=== PATIENT | male | born 1965 | race Caucasian/White ===

== ENCOUNTER 2019-06-16 10:34 | Outpatient (CLI) | payer OTHER ==
--- NOTE | 2019-06-16 11:15 | RAD ---
CHEST 2 VIEWS: Date: 06/16/19 HISTORY: Positive PPD. FINDINGS: Heart size is normal. The lungs appear clear. Mild biapical pleural thickening. IMPRESSION: No acute intrathoracic disease. No evidence for active TB. POS: C
== END 2019-06-16 10:35 | disposition home or self-care (01) ==
LOC: BICRAD 10:34
PROVIDERS: ATTEND Internal Medicine
DX: R76.11 Nonspecific reaction to tuberculin skin test without active tuberculosis (principal)
CPT/HCPCS: 71046

== ENCOUNTER 2021-09-24 16:47 | Inpatient (IN) | payer SELFPAY ==
[2021-09-24] MEDS ORDERED: Aspirin Chewable 81 MG TAB ONE (18:16)
[2021-09-24] MEDS ORDERED: Labetalol HCl 100 MG/20 ML VIAL ONE (18:16)
[2021-09-24] MEDS ORDERED: Ondansetron PF 4 MG/2 ML Vial IVP PRN (20:15)
[2021-09-24] MEDS ORDERED: Acetaminophen 650 MG Suppository PR PRN (20:15)
[2021-09-24] MEDS ORDERED: HumaLOG 300 UNITS/3 ML VIAL SC PRN (20:15)
[2021-09-24] MEDS ORDERED: Dextrose 5% in Water 1,000 ML IV PRN (20:15)
[2021-09-24] MEDS ORDERED: Senokot S 8.6-50 MG TAB PO PRN (20:15)
[2021-09-24] MEDS ORDERED: Dextrose 50% Abboject 50 ML SYRINGE SLOW IVP PRN (20:15)
[2021-09-24] MEDS ORDERED: Ondansetron ODT 4 MG TAB PO PRN (20:15)
[2021-09-24] MEDS ORDERED: Acetaminophen 325 MG TAB PO PRN (20:15)
[2021-09-24 23:01] VITALS: BMI 25.9
[2021-09-24] MEDS: Sodium Chloride 0.9% 1,000 ML IV SCH (23:18)
[2021-09-24] MEDS: Atorvastatin Calcium 40 MG TAB PO SCH (23:19)
[2021-09-24] MEDS: Nitroglycerin 2% Ointment 1 INCH/1 GM Packet TOP SCH (23:19)
[2021-09-25] MEDS: hydrALAZINE 20 MG/ML VIAL SLOW IVP PRN ×2 (03:29→08:26)
[2021-09-25] MEDS: Nicotine 14 MG PATCH TD SCH ×2 (04:39→20:50)
[2021-09-25 06:09] LABS: #Lymphocytes 1.1 thou/uL (1.20-3.40); #Monocytes 0.5 thou/uL (0.11-0.59); #Neutrophils 8.3 thou/uL (1.40-6.50); %Basophils 0.5 % (0.0-1.0); %Eosinophils 0.5 % (0.0-10.0); Hemoglobin 14.5 g/dL (14.0-18.0); Mean Corpuscular HGB CONC 32.6 g/dL (32.0-36.0); Mean Corpuscular Hemoglobin 25.9 pg (27.0-31.0); Mean Corpuscular Volume 79.4 fL (78.0-98.0); Mean Platelet Volume 8.3 fL (7.4-10.4); Platelet Count 205 thou/uL (130-400); RBC Distribution Width 13.9 % (11.5-14.5)
[2021-09-25 06:14] LABS: Hemoglobin A1c 6.8 % (4.0-6.0)
[2021-09-25 06:32] LABS: Anion Gap 12 mmol/L (10-20); BUN (Urea Nitrogen) 14 mg/dL (8.4-25.7); Calc. Creatinine Clearance 94 mL/min (70-130); Calcium 8.8 mg/dL (7.8-10.44); Carbon Dioxide 27 mmol/L (22-29); Cardiac Risk 3.7 (Less than 4.5); Chloride 101 mmol/L (98-107); Cholesterol 204 mg/dl (< 200 Desired); Glucose 157 mg/dL (70-105); HDL Cholesterol 55 mg/dL (>60 Neg Risk); LDL Cholesterol, Calculated 135 mg/dL; Potassium 3.6 mmol/L (3.5-5.1); Sodium 136 mmol/L (136-145); Triglycerides 70 mg/dL (Less than 150)
[2021-09-25] MEDS: Aspirin 81 mg Enteric Coated Tablet PO SCH (08:26)
[2021-09-25] MEDS: Nitroglycerin 2% Ointment 1 INCH/1 GM Packet TOP SCH ×2 (08:26→20:49)
[2021-09-25] MEDS ORDERED: Clopidogrel Bisulfate 75 MG TAB PO SCH (09:45)
[2021-09-25 11:58] LABS: SARS-CoV-2 PCR by NAA Not Detected (NotDetected)
[2021-09-25] MEDS: HumaLOG 300 UNITS/3 ML VIAL SC PRN ×2 (12:32→18:04)
[2021-09-25 13:13] LABS: Bacteria/HPF None Seen HPF (None Seen); Bilirubin Negative (Negative); Blood, Urine Negative (Negative); Clarity Clear (Clear); Glucose, Urine (Dipstick) 300 mg/dL (Negative); Ketone, Urine Trace mg/dL (Negative); Leukocyte Negative Leu/uL (Negative); Nitrite Negative (Negative); Protein, Urine (Dipstick) 50 mg/dL (Neg-Trace); RBC/HPF 0-3 HPF (0-3); Specific Gravity, Urine 1.019 (1.002-1.036); Squamous Epithelial None Seen HPF (0-3); Urobilinogen Normal mg/dL (Less than 2); WBC/HPF 0-3 HPF (0-3); pH, Urine 7.5 (5.0-9.0)
[2021-09-25] MEDS: Labetalol HCl 100 MG/20 ML VIAL SLOW IVP PRN (15:47)
[2021-09-25] MEDS: Sodium Chloride 0.9% 1,000 ML IV SCH (15:48)
[2021-09-25] MEDS: Atorvastatin Calcium 40 MG TAB PO SCH (20:50)
[2021-09-26] MEDS: Labetalol HCl 100 MG/20 ML VIAL SLOW IVP PRN (08:16)
[2021-09-26] MEDS: Aspirin 81 mg Enteric Coated Tablet PO SCH (08:16)
[2021-09-26] MEDS: Nitroglycerin 2% Ointment 1 INCH/1 GM Packet TOP SCH (08:17)
[2021-09-26] MEDS ORDERED: Clopidogrel Bisulfate 75 MG TAB PO SCH (09:00)
[2021-09-26] MEDS ORDERED: NIFEdipine XL 90 MG TAB PO SCH (10:00)
[2021-09-26] MEDS ORDERED: Losartan 25 MG TAB PO SCH (10:00)
[2021-09-26] MEDS: HumaLOG 300 UNITS/3 ML VIAL SC PRN (11:00)
[2021-09-26 12:28] VITALS: TEMP 98
[2021-09-26 13:25] VITALS: BP 158/102
== END 2021-09-26 14:04 | disposition home or self-care (01) | DRG 65 ==
LOC: ERS 16:47 → ERHOLD 19:02 → 3SE 22:40
PROVIDERS: ADMIT Student in an Organized Health Care Education/Training Program; ATTEND Internal Medicine
DX: I63.81 Other cerebral infarction due to occlusion or stenosis of small artery (principal); G81.94 Hemiplegia, unspecified affecting left nondominant side; I16.1 Hypertensive emergency; N17.9 Acute kidney failure, unspecified; Z20.822 Contact with and (suspected) exposure to COVID-19; R29.701 NIHSS score 1; L40.9 Psoriasis, unspecified; E11.9 Type 2 diabetes mellitus without complications; I10 Essential (primary) hypertension; K21.9 Gastro-esophageal reflux disease without esophagitis; R79.89 Other specified abnormal findings of blood chemistry; F17.210 Nicotine dependence, cigarettes, uncomplicated; Z91.19 Patient's noncompliance with other medical treatment and regimen; Z79.899 Other long term (current) drug therapy; Z83.3 Family history of diabetes mellitus; Z82.49 Family history of ischemic heart disease and other diseases of the circulatory system; Z71.6 Tobacco abuse counseling; Z79.84 Long term (current) use of oral hypoglycemic drugs
CPT/HCPCS: 36415; 36416; 70551; 80048; 80061; 81001; 83036; 85025; 93306; 96374; J0360; J1815; J7050; U0003; U0005

== ENCOUNTER 2021-10-30 11:52 | Emergency (ER) | payer SELFPAY ==
[2021-10-30 14:04] LABS: #Basophils 0.1 thou/uL (0.0-0.2); #Eosinphils 0.4 thou/uL (0.0-0.7); #Lymphocytes 1.5 thou/uL (1.20-3.40); #Monocytes 0.7 thou/uL (0.11-0.59); #Neutrophils 7.1 thou/uL (1.40-6.50); %Basophils 0.7 % (0.0-1.0); %Eosinophils 3.6 % (0.0-10.0); %Lymphocytes 15.6 % (21.0-51.0); %Monocytes 7.5 % (0.0-10.0); %Neutrophils 72.6 % (42.0-75.0); Hemoglobin 12.3 g/dL (14.0-18.0); Mean Corpuscular HGB CONC 33.2 g/dL (32.0-36.0); Mean Corpuscular Hemoglobin 27.3 pg (27.0-31.0); Mean Corpuscular Volume 82.2 fL (78.0-98.0); Platelet Count 277 thou/uL (130-400); RBC Distribution Width 15.2 % (11.5-14.5); White Blood Cell (WBC) Count 9.8 thou/uL (4.8-10.8)
[2021-10-30 14:25] LABS: ALT (SGPT) 11 U/L (8-55); AST (SGOT) 22 U/L (5-34); Albumin 3.5 g/dL (3.5-5.0); Alkaline Phosphatase 76 U/L (40-110); Anion Gap 15 mmol/L (10-20); BUN (Urea Nitrogen) 17 mg/dL (8.4-25.7); Bilirubin, Total 1.1 mg/dL (0.2-1.2); Calc. Creatinine Clearance 0 mL/min (70-130); Carbon Dioxide 25 mmol/L (22-29); Chloride 105 mmol/L (98-107); Globulin 2.8 g/dL (2.4-3.5); Glucose 110 mg/dL (70-105); Potassium 4.4 mmol/L (3.5-5.1); Protein, Total 6.3 g/dL (6.0-8.3); Sodium 141 mmol/L (136-145)
[2021-10-30] MEDS ORDERED: Furosemide 40 MG/4 ML VIAL ONE (15:04)
== END 2021-10-30 17:44 | disposition home or self-care (01) ==
LOC: ERS 11:52
DX: R60.0 Localized edema (principal); I10 Essential (primary) hypertension; E11.9 Type 2 diabetes mellitus without complications; K21.9 Gastro-esophageal reflux disease without esophagitis; F17.220 Nicotine dependence, chewing tobacco, uncomplicated; Z79.82 Long term (current) use of aspirin; Z79.899 Other long term (current) drug therapy
CPT/HCPCS: 80053; 83880; 84484; 85025; 93005; 96374; J1940

== ENCOUNTER 2023-05-10 16:00 | Inpatient (IN) | payer BC ==
[~2023-05-10 16:00] MED LIST: Iopamidol-370 76% 500 ML MDV (1 ML CHARGE) ONE
[2023-05-10 16:28] LABS: #Basophils 0.1 thou/uL (0.0-0.2); #Eosinphils 0.3 thou/uL (0.0-0.7); #Monocytes 0.5 thou/uL (0.11-0.59); %Basophils 0.8 % (0.0-1.0); %Eosinophils 4.5 % (0.0-10.0); %Lymphocytes 31.7 % (21.0-51.0); %Monocytes 7.5 % (0.0-10.0); %Neutrophils 55.2 % (42.0-75.0); Hemoglobin 15.8 g/dL (14.0-18.0); Mean Corpuscular HGB CONC 32.3 g/dL (32.0-36.0); Mean Corpuscular Hemoglobin 25.3 pg (27.0-31.0); Mean Corpuscular Volume 78.4 fl (78.0-98.0); Platelet Count 220 10x3/uL (130-400); RBC Distribution Width 14.6 % (11.5-14.5); Red Blood Cell (RBC) Count 6.24 mill/uL (4.70-6.10); White Blood Cell (WBC) Count 7.2 10x3/uL (4.8-10.8)
[2023-05-10 16:37] LABS: PTT 31.3 sec (22.9-36.1); Prothrombin Time 13.4 sec (12.0-14.7)
[2023-05-10 16:48] LABS: ALT (SGPT) Less than 7 U/L (8-55); AST (SGOT) 18 U/L (5-34); Albumin 4.2 g/dL (3.5-5.0); Alkaline Phosphatase 75 U/L (40-110); Anion Gap 15 mmol/L (10-20); BUN (Urea Nitrogen) 17 mg/dL (8.4-25.7); Bilirubin, Total 0.6 mg/dL (0.2-1.2); CK (CPK) 144 U/L (30-200); Calc. Creatinine Clearance 0 mL/min (70-130); Carbon Dioxide 23 mmol/L (22-29); Chloride 105 mmol/L (98-107); Estimated GFR 69; Globulin 2.7 g/dL (2.4-3.5); Glucose 163 mg/dL (70-105); Potassium 4.3 mmol/L (3.5-5.1); Protein, Total 6.9 g/dL (6.0-8.3); Sodium 139 mmol/L (136-145)
[2023-05-10] MEDS ORDERED: Aspirin Chewable 81 MG TAB ONE (18:27)
[2023-05-10] MEDS ORDERED: Ondansetron PF 4 MG/2 ML Vial IVP PRN (19:58)
[2023-05-10] MEDS ORDERED: Acetaminophen 325 MG TAB PO PRN (19:58)
[2023-05-10] MEDS ORDERED: hydrALAZINE 20 MG/ML VIAL SLOW IVP PRN (19:58)
[2023-05-10] MEDS ORDERED: Dextrose 50% Abboject 50 ML SYRINGE SLOW IVP PRN (20:05)
[2023-05-10] MEDS ORDERED: Dextrose 5% in Water 1,000 ML IV PRN (20:05)
[2023-05-10] MEDS ORDERED: Glucagon 1 MG/ML KIT IM PRN (20:05)
[2023-05-10] MEDS ORDERED: HumaLOG 300 UNITS/3 ML VIAL SC PRN (20:05)
[2023-05-10 22:17] VITALS: BMI 27.1
[2023-05-10] MEDS: Atorvastatin Calcium 40 MG TAB PO SCH (22:50)
[2023-05-11 05:04] LABS: #Eosinphils 0.4 thou/uL (0.0-0.7); #Monocytes 0.5 thou/uL (0.11-0.59); #Neutrophils 3.1 thou/uL (1.40-6.50); %Basophils 0.6 % (0.0-1.0); %Eosinophils 6.2 % (0.0-10.0); %Lymphocytes 38.2 % (21.0-51.0); %Monocytes 7.9 % (0.0-10.0); %Neutrophils 46.8 % (42.0-75.0); Hemoglobin 15.1 g/dL (14.0-18.0); Mean Corpuscular HGB CONC 32.4 g/dL (32.0-36.0); Mean Corpuscular Hemoglobin 25.1 pg (27.0-31.0); Mean Corpuscular Volume 77.5 fl (78.0-98.0); Platelet Count 204 10x3/uL (130-400); RBC Distribution Width 14.6 % (11.5-14.5); Red Blood Cell (RBC) Count 6.01 mill/uL (4.70-6.10); White Blood Cell (WBC) Count 6.6 10x3/uL (4.8-10.8)
[2023-05-11 05:21] LABS: Hemoglobin A1c 8.7 % (4.0-6.0)
[2023-05-11 05:35] LABS: Anion Gap 12 mmol/L (10-20); BUN (Urea Nitrogen) 19 mg/dL (8.4-25.7); Calc. Creatinine Clearance 81 mL/min (70-130); Calcium 8.9 mg/dL (7.8-10.44); Carbon Dioxide 23 mmol/L (22-29); Cardiac Risk 5.5 (Less than 4.5); Chloride 108 mmol/L (98-107); Cholesterol 221 mg/dl (< 200 Desired); Estimated GFR 76; Glucose 138 mg/dL (70-105); HDL Cholesterol 40 mg/dL (>60 Neg Risk); LDL Cholesterol, Calculated 143 mg/dL; Potassium 3.8 mmol/L (3.5-5.1); Sodium 139 mmol/L (136-145); Triglycerides 191 mg/dL (Less than 150)
[2023-05-11] MEDS: Aspirin 81 mg Enteric Coated Tablet PO SCH (08:58)
[2023-05-11] MEDS: Atorvastatin Calcium 40 MG TAB PO SCH (20:39)
[2023-05-12] MEDS ORDERED: diphenhydrAMINE 25 MG CAP PO SCH (04:15)
[2023-05-12 05:28] LABS: #Eosinphils 0.3 thou/uL (0.0-0.7); #Monocytes 0.4 thou/uL (0.11-0.59); #Neutrophils 3.5 thou/uL (1.40-6.50); %Basophils 0.5 % (0.0-1.0); %Eosinophils 5.8 % (0.0-10.0); %Lymphocytes 26.4 % (21.0-51.0); %Monocytes 6.3 % (0.0-10.0); %Neutrophils 60.7 % (42.0-75.0); Hemoglobin 14.6 g/dL (14.0-18.0); Mean Corpuscular HGB CONC 32.7 g/dL (32.0-36.0); Mean Corpuscular Hemoglobin 25.4 pg (27.0-31.0); Mean Corpuscular Volume 77.7 fl (78.0-98.0); Mean Platelet Volume 9.9 fL (7.4-10.4); Platelet Count 217 10x3/uL (130-400); RBC Distribution Width 14.5 % (11.5-14.5); Red Blood Cell (RBC) Count 5.74 mill/uL (4.70-6.10); White Blood Cell (WBC) Count 5.7 10x3/uL (4.8-10.8)
[2023-05-12 05:52] LABS: Anion Gap 10 mmol/L (10-20); BUN (Urea Nitrogen) 17 mg/dL (8.4-25.7); Calc. Creatinine Clearance 73 mL/min (70-130); Calcium 8.6 mg/dL (7.8-10.44); Carbon Dioxide 26 mmol/L (22-29); Chloride 104 mmol/L (98-107); Estimated GFR 68; Glucose 230 mg/dL (70-105); Potassium 3.6 mmol/L (3.5-5.1); Sodium 136 mmol/L (136-145)
[2023-05-12] MEDS: HumaLOG 300 UNITS/3 ML VIAL SC PRN ×2 (06:52→18:18)
[2023-05-12] MEDS: Aspirin 81 mg Enteric Coated Tablet PO SCH (08:26)
[2023-05-12] MEDS: Labetalol HCl 100 MG/20 ML VIAL SLOW IVP PRN (08:41)
[2023-05-12] MEDS ORDERED: Clopidogrel Bisulfate 300 MG TAB PO SCH (13:30)
[2023-05-12] MEDS: Atorvastatin Calcium 40 MG TAB PO SCH (20:44)
[2023-05-12] MEDS: diphenhydrAMINE 50 MG/ML VIAL IVP PRN (22:47)
[2023-05-13] MEDS: HumaLOG 300 UNITS/3 ML VIAL SC PRN (06:22)
[2023-05-13] MEDS: Labetalol HCl 100 MG/20 ML VIAL SLOW IVP PRN (08:54)
[2023-05-13] MEDS: Aspirin 81 mg Enteric Coated Tablet PO SCH (08:54)
[2023-05-13] MEDS: diphenhydrAMINE 50 MG/ML VIAL IVP PRN (08:54)
[2023-05-13] MEDS ORDERED: Clopidogrel Bisulfate 75 MG TAB PO SCH (09:00)
[2023-05-13] MEDS ORDERED: Amlodipine 5 MG TAB PO SCH (12:30)
[2023-05-13] MEDS ORDERED: hydrALAZINE 25 MG TAB PO SCH (15:00)
[2023-05-13 15:57] VITALS: BP 173/95; TEMP 98.3
[2023-05-14] MEDS ORDERED: Amlodipine 5 MG TAB PO SCH (09:00)
== END 2023-05-13 16:56 | disposition home or self-care (01) | DRG 65 ==
LOC: ERS 16:00 → 2SW 19:43 → OBSVTOIN 05-11 09:49
PROVIDERS: ADMIT Internal Medicine; ATTEND Internal Medicine
DX: I63.9 Cerebral infarction, unspecified (principal); G81.94 Hemiplegia, unspecified affecting left nondominant side; I16.1 Hypertensive emergency; K21.9 Gastro-esophageal reflux disease without esophagitis; L40.9 Psoriasis, unspecified; F17.290 Nicotine dependence, other tobacco product, uncomplicated; R47.1 Dysarthria and anarthria; E78.5 Hyperlipidemia, unspecified; E78.00 Pure hypercholesterolemia, unspecified; R21 Rash and other nonspecific skin eruption; M31.6 Other giant cell arteritis; E11.51 Type 2 diabetes mellitus with diabetic peripheral angiopathy without gangrene; R47.81 Slurred speech; Z79.899 Other long term (current) drug therapy; Z79.82 Long term (current) use of aspirin; Z86.73 Personal history of transient ischemic attack (TIA), and cerebral infarction without residual deficits
CPT/HCPCS: 36415; 36416; 70450; 70496; 70498; 70551; 80048; 80053; 80061; 82550; 83036; 85025; 85610; 85730; 93005; 93306; 94760; 96372; G0378; J0360; J1200; J1650; J1815; Q9967

== ENCOUNTER 2023-05-16 13:22 | Emergency (ER) | payer BC | END 2023-05-16 15:11 | disposition home or self-care (01) | LOC: ERS 13:22 | DX: L50.9 Urticaria, unspecified (principal); I10 Essential (primary) hypertension; E78.5 Hyperlipidemia, unspecified; E11.9 Type 2 diabetes mellitus without complications; K21.9 Gastro-esophageal reflux disease without esophagitis; Z87.891 Personal history of nicotine dependence; Z79.899 Other long term (current) drug therapy; Z79.82 Long term (current) use of aspirin | CPT/HCPCS: 99282 ==

== ENCOUNTER 2024-09-23 16:03 | Emergency (ER) | payer BC ==
[2024-09-23 17:30] LABS: #Basophils 0.04 10x3/uL (0.0-0.2); %Basophils 0.5 % (0.0-1.0); %Eosinophils 0.4 % (0.0-10.0); %Lymphocytes 17.3 % (21.0-51.0); %Monocytes 6.2 % (0.0-10.0); %Neutrophils 75.3 % (42.0-75.0); Hematocrit 47.1 % (42.0-52.0); Hemoglobin 15.2 g/dL (14.0-18.0); Mean Corpuscular HGB CONC 32.3 g/dL (32.0-36.0); Mean Corpuscular Hemoglobin 25.5 pg (27.0-31.0); Mean Corpuscular Volume 78.9 fL (78.0-98.0); Mean Platelet Volume 9.7 fL (7.4-10.4); Platelet Count 253 10x3/uL (130-400); RBC Distribution Width 14.1 % (11.5-14.5); Red Blood Cell (RBC) Count 5.97 mill/uL (4.70-6.10)
[2024-09-23 17:44] LABS: ALT (SGPT) 9 U/L (8-55); AST (SGOT) 76 U/L (5-34); Alkaline Phosphatase 100 U/L (40-110); Anion Gap 17 mmol/L (10-20); BUN (Urea Nitrogen) 33 mg/dL (8.4-25.7); Bilirubin, Total 1.1 mg/dL (0.2-1.2); CK (CPK) 552 U/L (30-200); Calc. Creatinine Clearance 0 mL/min (70-130); Calcium 9.5 mg/dL (7.8-10.44); Carbon Dioxide 24 mmol/L (22-29); Chloride 98 mmol/L (98-107); Estimated GFR 36; Globulin 3.8 g/dL (2.4-3.5); Glucose 228 mg/dL (70-105); Potassium 3.6 mmol/L (3.5-5.1); Protein, Total 7.8 g/dL (6.0-8.3); Sodium 135 mmol/L (136-145)
== END 2024-09-23 18:15 | disposition home or self-care (01) ==
LOC: ERS 16:03
DX: L40.9 Psoriasis, unspecified (principal); E11.65 Type 2 diabetes mellitus with hyperglycemia; I10 Essential (primary) hypertension; K21.9 Gastro-esophageal reflux disease without esophagitis; Z87.891 Personal history of nicotine dependence
CPT/HCPCS: 36415; 36416; 80053; 82550; 85025; 99282

== ENCOUNTER 2024-09-24 09:06 | Emergency (ER) | payer BC ==
[2024-09-24] MEDS ORDERED: hydrOXYzine 25 MG TAB ONE (09:49)
[2024-09-24] MEDS ORDERED: metFORMIN 500 MG TAB PO SCH (10:00)
== END 2024-09-24 10:55 | disposition home or self-care (01) ==
LOC: ERS 09:06
DX: L40.9 Psoriasis, unspecified (principal); I10 Essential (primary) hypertension; E11.9 Type 2 diabetes mellitus without complications
CPT/HCPCS: 36416; 99283

== ENCOUNTER 2024-09-25 15:32 | Emergency (ER) | payer BC | END 2024-09-25 16:15 | disposition left against medical advice (07) | LOC: ERS 15:32 | DX: Z53.21 Procedure and treatment not carried out due to patient leaving prior to being seen by health care provider (principal) | CPT/HCPCS: 36416 ==

== ENCOUNTER 2024-09-27 14:06 | Emergency (ER) | payer BC | END 2024-09-27 15:41 | disposition home or self-care (01) | LOC: ERS 14:06 | DX: L40.0 Psoriasis vulgaris (principal); I10 Essential (primary) hypertension; E11.9 Type 2 diabetes mellitus without complications; F17.220 Nicotine dependence, chewing tobacco, uncomplicated | CPT/HCPCS: 93005; 99282 ==

== ENCOUNTER 2024-10-04 15:59 | Emergency (ER) | payer BC ==
[2024-10-04] MEDS ORDERED: hydrOXYzine 25 MG TAB ONE (16:52)
== END 2024-10-04 17:42 | disposition home or self-care (01) ==
LOC: ERS 15:59
DX: L40.9 Psoriasis, unspecified (principal); I10 Essential (primary) hypertension; E11.9 Type 2 diabetes mellitus without complications; F17.220 Nicotine dependence, chewing tobacco, uncomplicated
CPT/HCPCS: 99282

== ENCOUNTER 2024-10-05 16:41 | Emergency (ER) | payer BC | END 2024-10-05 17:33 | disposition home or self-care (01) | LOC: ERS 16:41 | DX: L40.9 Psoriasis, unspecified (principal); I10 Essential (primary) hypertension; E11.9 Type 2 diabetes mellitus without complications; F17.220 Nicotine dependence, chewing tobacco, uncomplicated; Z55.0 Illiteracy and low-level literacy; Z75.3 Unavailability and inaccessibility of health-care facilities | CPT/HCPCS: 99282 ==

== ENCOUNTER 2024-10-07 11:38 | Emergency (ER) | payer BC ==
[2024-10-07 12:23] LABS: #Basophils 0.03 10x3/uL (0.0-0.2); %Basophils 0.5 % (0.0-1.0); %Eosinophils 2.5 % (0.0-10.0); %Lymphocytes 19.6 % (21.0-51.0); %Monocytes 5.9 % (0.0-10.0); %Neutrophils 71.3 % (42.0-75.0); Hematocrit 43.7 % (42.0-52.0); Hemoglobin 13.8 g/dL (14.0-18.0); Mean Corpuscular HGB CONC 31.6 g/dL (32.0-36.0); Mean Corpuscular Hemoglobin 25.2 pg (27.0-31.0); Mean Corpuscular Volume 79.7 fL (78.0-98.0); Mean Platelet Volume 9.7 fL (7.4-10.4); Platelet Count 257 10x3/uL (130-400); RBC Distribution Width 14.4 % (11.5-14.5); Red Blood Cell (RBC) Count 5.48 mill/uL (4.70-6.10)
[2024-10-07 12:38] LABS: ALT (SGPT) 6 U/L (8-55); AST (SGOT) 18 U/L (5-34); Albumin 3.6 g/dL (3.5-5.0); Alkaline Phosphatase 83 U/L (40-110); Anion Gap 14 mmol/L (10-20); BUN (Urea Nitrogen) 13 mg/dL (8.4-25.7); Bilirubin, Total 0.7 mg/dL (0.2-1.2); Calc. Creatinine Clearance 0 mL/min (70-130); Calcium 8.7 mg/dL (7.8-10.44); Carbon Dioxide 26 mmol/L (22-29); Chloride 101 mmol/L (98-107); Estimated GFR 52; Globulin 3.8 g/dL (2.4-3.5); Glucose 262 mg/dL (70-105); Protein, Total 7.4 g/dL (6.0-8.3); Sodium 137 mmol/L (136-145)
[2024-10-07 12:45] LABS: Troponin I 0.044 ng/mL (< 0.028)
== END 2024-10-07 15:08 | disposition home or self-care (01) ==
LOC: ERS 11:38
DX: L40.9 Psoriasis, unspecified (principal); R79.89 Other specified abnormal findings of blood chemistry
CPT/HCPCS: 36415; 36416; 71045; 80053; 84484; 85025; 93005

== ENCOUNTER 2024-10-08 11:04 | Emergency (ER) | payer BC | END 2024-10-08 11:57 | disposition home or self-care (01) | LOC: ERS 11:04 | DX: L40.9 Psoriasis, unspecified (principal); Z00.00 Encounter for general adult medical examination without abnormal findings; I10 Essential (primary) hypertension; E11.9 Type 2 diabetes mellitus without complications; F17.220 Nicotine dependence, chewing tobacco, uncomplicated | CPT/HCPCS: 99282 ==